=== PATIENT | female | born 1945 | race Caucasian/White ===

== ENCOUNTER → 2016-10-16 | Outpatient (CLI) | payer MEDICARE, OTHER | LOC: COL.RAD 08:15 | DX: K74.69 Other cirrhosis of liver (principal); R16.1 Splenomegaly, not elsewhere classified; K80.80 Other cholelithiasis without obstruction ==

== ENCOUNTER → 2017-06-18 | Outpatient (CLI) | payer MEDICARE, OTHER | LOC: COL.RAD 07:30 | DX: K76.89 Other specified diseases of liver (principal); K76.6 Portal hypertension; I87.8 Other specified disorders of veins; K80.20 Calculus of gallbladder without cholecystitis without obstruction; N28.89 Other specified disorders of kidney and ureter ==

== ENCOUNTER → 2017-12-03 | Outpatient (CLI) | payer MEDICARE, OTHER | LOC: COL.RAD 09:40 | DX: K74.60 Unspecified cirrhosis of liver (principal); K76.6 Portal hypertension; R16.1 Splenomegaly, not elsewhere classified; K80.20 Calculus of gallbladder without cholecystitis without obstruction ==

== ENCOUNTER → 2018-03-11 | Outpatient (CLI) | payer MEDICARE, OTHER | LOC: MC.RAD 07:40 | DX: Z12.31 Encounter for screening mammogram for malignant neoplasm of breast (principal) ==

== ENCOUNTER 2018-05-14 15:21 | Emergency (ER) | payer MEDICARE, OTHER ==
[~2018-05-14] VITALS: Ht 165.1 cm; Wt 67.3 kg
[2018-05-14 15:24] VITALS: TEMP 99
[2018-05-14 16:02] LABS: BASO % 0.3 % (0.0-2.0); EOS % 0.1 % (0-4.0); GRAN # 5.8 (1.4-6.5); GRAN % 84.8 % (42.2-75.2); LYMPH # 0.6 (1.2-3.4); LYMPH % 9.3 % (20.0-51.0); MEAN CELL VOLUME 88 fl (80.0-100.0); MEAN CORPUSCULAR HGB CONC 29 g/dl (33.0-37.0); MONO # 0.4 (0.1-0.6); MONO % 5.2 % (1.7-9.3); RED BLOOD COUNT 2.99 M/mm3 (4.10-5.30); REDCELL DISTRIBUTION WIDTH-CV 17.6 % (11.5-14.5)
[2018-05-14] MEDS ORDERED: PRINIVIL5 MG PO (16:09)
[2018-05-14] MEDS ORDERED: ACTIGALL 300MG300 MG PO (16:09)
[2018-05-14] MEDS ORDERED: NATURAL IRON65 MG (16:10)
[2018-05-14] MEDS ORDERED: VITAMIN D31000 I1 PO (16:10)
[2018-05-14] MEDS ORDERED: XANAX 0.5MG0.5 MG PO (16:12)
[2018-05-14 16:13] LABS: ALBUMIN 3.3 gm/dL (3.5-5.0); BILIRUBIN,TOTAL 0.7 mg/dL (0.0-1.0); C-REACTIVE PROTEIN 1.1 mg/dL (0.0-0.9); CALCIUM 8.7 mg/dL (8.4-10.2); CREATININE, serum 0.82 mg/dL (0.52-1.25); POTASSIUM 4.4 mmol/L (3.4-5.0); TOTAL PROTEIN 6.3 gm/dL (6.4-8.2)
[2018-05-14 16:16] LABS: HEMATOCRIT 26.3 % (37.0-47.0); HEMOGLOBIN 7.8 g/dl (12.5-16.0); MEAN CORPUSCULAR HEMOGLOBIN 26 pg (27.0-31.0)
[2018-05-14 16:17] LABS: PLATELET COUNT 48 K/mm3 (130-400)
[2018-05-14 17:37] VITALS: BP 114/56; PULSE 71
== END 2018-05-14 17:46 | disposition short-term general hospital (02) ==
LOC: COL.ER 15:21
PROVIDERS: Emergency Medicine
DX: K92.2 Gastrointestinal hemorrhage, unspecified (principal); I10 Essential (primary) hypertension; D64.9 Anemia, unspecified; D69.6 Thrombocytopenia, unspecified; Z90.710 Acquired absence of both cervix and uterus
CPT/HCPCS: C9113; J2405; J7030

== ENCOUNTER → 2018-09-09 | Outpatient (CLI) | payer MEDICARE, OTHER ==
[~2018-09-09] MED LIST: ACTIGALL 300MG300 MG PO; NATURAL IRON65 MG; PRINIVIL5 MG PO; VITAMIN D31000 I1 PO; XANAX 0.5MG0.5 MG PO
== END ==
LOC: COL.RAD 07:25
DX: K74.3 Primary biliary cirrhosis (principal); K76.6 Portal hypertension; K80.20 Calculus of gallbladder without cholecystitis without obstruction; K82.8 Other specified diseases of gallbladder

== ENCOUNTER → 2019-03-17 | Outpatient (CLI) | payer MEDICARE, OTHER | LOC: MC.RAD 09:15 | DX: Z12.31 Encounter for screening mammogram for malignant neoplasm of breast (principal) ==

== ENCOUNTER → 2019-05-12 | Outpatient (CLI) | payer MEDICARE, OTHER | LOC: COL.RAD 07:12 | DX: K74.3 Primary biliary cirrhosis (principal); K80.20 Calculus of gallbladder without cholecystitis without obstruction ==

== ENCOUNTER → 2019-11-17 | Outpatient (CLI) | payer MEDICARE, OTHER | LOC: COL.RAD 09:26 | DX: K83.1 Obstruction of bile duct (principal); K74.60 Unspecified cirrhosis of liver; D73.2 Chronic congestive splenomegaly; K74.3 Primary biliary cirrhosis ==

== ENCOUNTER → 2019-12-29 | Outpatient (CLI) | payer MEDICARE, OTHER | LOC: COL.RAD 12-27 08:00 | DX: N13.30 Unspecified hydronephrosis (principal); R91.1 Solitary pulmonary nodule ==

== ENCOUNTER → 2020-01-05 | Outpatient (CLI) | payer MEDICARE, OTHER | LOC: COL.RAD 12:57 | DX: K74.60 Unspecified cirrhosis of liver (principal); R91.1 Solitary pulmonary nodule | CPT/HCPCS: Q9967 ==

== ENCOUNTER → 2020-01-12 | Outpatient (CLI) | payer MEDICARE, OTHER ==
[~2020-01-12] VITALS: Ht 165.1 cm; Wt 64.9 kg
[2020-01-12] VITALS (13 sets, daily range): BP systolic 104–172; BP diastolic 56–88; PULSE 50–63; TEMP 98–98.4
[~2020-01-12] MED LIST changes: +CORGARD40 MG PO; +HCTZ 25MG TAB25 MG PO; +VITAMIN A10k PO
--- NOTE | 2020-01-12 10:13 | NUR ---
PT WAS TAKEN AMBULATORY TO CT. PT PLACED ON THE TABLE AND MONITORING EQUIPMENT PLACED. IMAGES TAKEN AND SENT
--- NOTE | 2020-01-12 10:26 | NUR ---
PT GIVEN VERSED 0.5 MG AND FENTANYL 25 MCG SIVP
--- NOTE | 2020-01-12 11:09 | NUR ---
Lung sounds auscultated in all lobes, dressing CDI, AAOx4, pain "tenderness" rated 3/10 "not bad at all" to right upper chest wall/puncture site.
--- NOTE | 2020-01-12 11:40 | NUR ---
Radiology called for Chest XRay
== END ==
LOC: COL.RAD 09:00
DX: R91.8 Other nonspecific abnormal finding of lung field (principal)

== ENCOUNTER 2020-01-16 18:01 | Emergency (ER) | payer MEDICARE, OTHER ==
[~2020-01-16] VITALS: Ht 165.1 cm; Wt 65.9 kg
[2020-01-16 18:24] LABS: BASO % 0.5 % (0.0-2.0); EOS % 0.7 % (0-4.0); GRAN # 3.6 (1.4-6.5); GRAN % 87.1 % (42.2-75.2); HEMATOCRIT 44.9 % (37.0-47.0); HEMOGLOBIN 14.9 g/dl (12.5-16.0); LYMPH # 0.3 (1.2-3.4); LYMPH % 6.7 % (20.0-51.0); MEAN CELL VOLUME 92 fl (80.0-100.0); MEAN CORPUSCULAR HEMOGLOBIN 31 pg (27.0-31.0); MEAN CORPUSCULAR HGB CONC 33 g/dl (33.0-37.0); MONO # 0.2 (0.1-0.6); MONO % 4.8 % (1.7-9.3); RED BLOOD COUNT 4.87 M/mm3 (4.10-5.30); REDCELL DISTRIBUTION WIDTH-CV 13.5 % (11.5-14.5)
[2020-01-16 18:27] LABS: PLATELET COUNT 34 K/mm3 (130-400)
[2020-01-16 18:28] LABS: INR 1.2 (0.8-3.0); PROTHROMBIN TIME 13.2 SECONDS (9.7-12.8)
[2020-01-16 18:31] LABS: PARTIAL THROMBOPLASTIN TIME 37.3 SECONDS (26.0-37.0)
[2020-01-16 18:34] LABS: ALBUMIN 4.4 gm/dL (3.5-5.0); BILIRUBIN,TOTAL 1.8 mg/dL (0.0-1.0); C-REACTIVE PROTEIN 1.2 mg/dL (0.0-0.9); CALCIUM 9.9 mg/dL (8.4-10.2); CREATININE, serum 0.68 (0.52-1.25); POTASSIUM 4.2 mmol/L (3.4-5.0)
[2020-01-16 19:29] VITALS: BP 176/84; PULSE 66; TEMP 98.7
[2020-01-16 19:53] VITALS: BP 150/76; PULSE 63; TEMP 98.3
[2020-01-16 20:32] VITALS: BP 149/72; PULSE 68; TEMP 98.5
[2020-01-16 20:54] VITALS: BP 149/72; PULSE 68; TEMP 98.5
== END 2020-01-16 20:59 | disposition short-term general hospital (02) ==
LOC: COL.ER 18:01
PROVIDERS: Emergency Medicine
DX: R04.2 Hemoptysis (principal); D69.6 Thrombocytopenia, unspecified; Z98.890 Other specified postprocedural states
CPT/HCPCS: J0696; J7030; P9035; Q9967

== ENCOUNTER → 2020-04-05 | Outpatient (CLI) | payer MEDICARE, OTHER | LOC: COL.CARD 03-29 11:25 | DX: D86.9 Sarcoidosis, unspecified (principal); I08.1 Rheumatic disorders of both mitral and tricuspid valves ==

== ENCOUNTER 2020-08-13 10:00 | Outpatient (RCR) | payer MEDICARE, OTHER ==
[2020-08-13] VITALS (7 sets, daily range): BP systolic 117–154; BP diastolic 59–76; PULSE 55–66; TEMP 97.7–98.5
[~2020-08-13] VITALS: Ht 165.1 cm; Wt 68.0 kg
[2020-08-13] MEDS ORDERED: CALCIUM CARBON650 M2 (10:29)
[2020-08-13] MEDS ORDERED: PREDNISONE10 MG PO (10:30)
[2020-08-13 14:14] LABS: BASO % 0.2 % (0.0-2.0); EOS % 0.3 % (0-4.0); GRAN # 5.5 (1.4-6.5); GRAN % 88.7 % (42.2-75.2); HEMATOCRIT 40.3 % (37.0-47.0); HEMOGLOBIN 13.2 g/dl (12.5-16.0); LYMPH # 0.5 (1.2-3.4); LYMPH % 8.4 % (20.0-51.0); MEAN CELL VOLUME 94 fl (80.0-100.0); MEAN CORPUSCULAR HEMOGLOBIN 31 pg (27.0-31.0); MEAN CORPUSCULAR HGB CONC 33 g/dl (33.0-37.0); MEAN PLATELET VOLUME 12.5 fl (7.4-10.4); MONO # 0.1 (0.1-0.6); MONO % 2.1 % (1.7-9.3); PLATELET COUNT 58 K/mm3 (130-400); RED BLOOD COUNT 4.27 M/mm3 (4.10-5.30)
--- NOTE | 2020-08-13 14:45 | NUR ---
1445- 1 unit platelets transfused. See transfusion record. Platelets 53 post transfusion. Results faxed to pain clinic and Dr. Duenas's office. Patient ambulatory off unit to private vehicle.
== END 2020-08-13 14:53 | disposition home or self-care (01) ==
LOC: EUO 10:00 → EDSTATUS 10:00 → EUO 14:53
PROVIDERS: Family Medicine
DX: D69.6 Thrombocytopenia, unspecified (principal)
CPT/HCPCS: J7050; P9035

== ENCOUNTER → 2020-09-11 | Outpatient (CLI) | payer MEDICARE, OTHER ==
[~2020-09-11] MED LIST changes: +CALCIUM CARBON650 M2; +PREDNISONE10 MG PO
== END ==
LOC: COL.RAD 12:26
DX: I27.21 Secondary pulmonary arterial hypertension (principal)
CPT/HCPCS: A9540; A9567

== ENCOUNTER → 2020-11-28 | Outpatient (CLI) | payer MEDICARE, OTHER ==
[~2020-11-28] MED LIST changes: +CALCIUM 600MG+D1 TAB PO; -CALCIUM CARBON650 M2; +K-DUR20 MEQ PO; +LASIX 20MG TABL20 MG PO; +NORVASC 5MG5 MG/TAB PO; +TOPROL XL 50MG50 MG PO
== END ==
LOC: COL.RAD 09:26
DX: K74.3 Primary biliary cirrhosis (principal)

== ENCOUNTER → 2021-03-05 | Outpatient (CLI) | payer MEDICARE, OTHER | LOC: COL.CAR 12:00 | DX: S32.040A Wedge compression fracture of fourth lumbar vertebra, initial encounter for closed fracture (principal); Z53.8 Procedure and treatment not carried out for other reasons ==

== ENCOUNTER 2021-03-24 10:37 | Outpatient (CLI) | payer MEDICARE, OTHER ==
[~2021-03-24] VITALS: Ht 165.2 cm; Wt 70.5 kg
[~2021-03-24 10:37] MED LIST changes: -K-DUR20 MEQ PO; -LASIX 20MG TABL20 MG PO; -NORVASC 5MG5 MG/TAB PO; -TOPROL XL 50MG50 MG PO
[2021-03-24] MEDS ORDERED: LASIX 20MG TABL20 MG PO (11:22)
[2021-03-24] MEDS ORDERED: TOPROL XL 50MG50 MG PO (11:23)
[2021-03-24] MEDS ORDERED: NORVASC 5MG5 MG/TAB PO (11:23)
[2021-03-24] MEDS ORDERED: K-DUR20 MEQ PO (11:23)
[2021-03-24 11:44] VITALS: BP 120/49; PULSE 62; TEMP 98.3
[2021-03-24 15:00] VITALS: BP 143/89; PULSE 135; TEMP 98.3
--- NOTE | 2021-03-24 15:00 | NUR ---
Report from Ashley FERRARA. Transferred from Radiology by bed. Four bandaids to back CD&I. Denies pain and needs at this time. VSS
[2021-03-24 15:16] VITALS: BP 165/85; PULSE 73; TEMP 98.3
[2021-03-24 15:31] VITALS: BP 162/94; PULSE 71; TEMP 98.3
[2021-03-24 15:46] VITALS: BP 128/73; PULSE 58; TEMP 98.3
[2021-03-24 16:12] VITALS: BP 121/72; PULSE 61; TEMP 98.3
--- NOTE | 2021-03-24 16:12 | NUR ---
Up to bathroom with steady gait. Denies pain at this time
--- NOTE | 2021-03-24 16:17 | NUR ---
INT discontinued intact. Dr. Garcia talked with pt son. Discharge instructions given.
--- NOTE | 2021-03-24 16:30 | NUR ---
Transferred to private car by rosaura
== END 2021-03-24 16:30 | disposition home or self-care (01) ==
LOC: COL.CAR 10:37
DX: M80.08XA Age-related osteoporosis with current pathological fracture, vertebra(e), initial encounter for fracture (principal); M54.5 Low back pain; Z90.710 Acquired absence of both cervix and uterus; Z20.822 Contact with and (suspected) exposure to COVID-19
CPT/HCPCS: C1713; J1200; J2250; J3010

== ENCOUNTER 2021-04-02 10:28 | Outpatient (CLI) | payer MEDICARE, OTHER ==
[~2021-04-02] VITALS: Ht 165.4 cm; Wt 70.5 kg
[~2021-04-02 10:28] MED LIST changes: +K-DUR20 MEQ PO; +LASIX 20MG TABL20 MG PO; +NORVASC 5MG5 MG/TAB PO; +TOPROL XL 50MG50 MG PO
[2021-04-02 10:57] VITALS: BP 130/59; PULSE 59; TEMP 97.7
[2021-04-02 11:11] VITALS: BP 128/68; PULSE 55
--- NOTE | 2021-04-02 11:12 | NUR ---
SEE MERGE DOCUMENTATION FOR MEDICATION ADMINISTRATION TIMES AND INTRA/POST PROCEDURE SEDATION ASSESSMENTS.
[2021-04-02 12:00] VITALS: BP 117/53; PULSE 60
--- NOTE | 2021-04-02 12:00 | NUR ---
pt back to eu 9 via bed from lab manager, has 3 bandaids to lower back, pt states is "sore" in back at this time, moves well in bed, watches tv, sips on water, reviewed post op orders with pt.
[2021-04-02 12:15] VITALS: BP 110/49; PULSE 52
[2021-04-02 12:30] VITALS: BP 113/54; PULSE 62
--- NOTE | 2021-04-02 12:45 | NUR ---
pt up to bedside to use bedside commode, voided, back to bed, moves self, no c/o increase pain.
[2021-04-02 13:00] VITALS: BP 110/60; PULSE 62
--- NOTE | 2021-04-02 13:30 | NUR ---
pt up in room, dressed, iv d'cd intact. states pain level is some better at 6 to 7, reviewed discharge inst. [facility] pt on activity, care of sites and followup after procedure with verbal understanding. pt discharged via w/c to car with
== END 2021-04-02 13:35 | disposition home or self-care (01) ==
LOC: COL.CAR 10:28
DX: M48.55XA Collapsed vertebra, not elsewhere classified, thoracolumbar region, initial encounter for fracture (principal)
CPT/HCPCS: C1713; J2250; J3010; J7120

== ENCOUNTER → 2021-04-18 | Outpatient (CLI) | payer MEDICARE, OTHER | LOC: COL.VAS 12:18 | DX: I27.21 Secondary pulmonary arterial hypertension (principal); I08.1 Rheumatic disorders of both mitral and tricuspid valves ==

== ENCOUNTER → 2021-06-19 | Outpatient (CLI) | payer MEDICARE, OTHER | LOC: MC.RAD 11:15 | DX: Z12.31 Encounter for screening mammogram for malignant neoplasm of breast (principal) ==

== ENCOUNTER → 2021-07-15 | Outpatient (CLI) | payer MEDICARE, OTHER | LOC: COL.RAD 09:39 | DX: K80.20 Calculus of gallbladder without cholecystitis without obstruction (principal); K74.3 Primary biliary cirrhosis ==

== ENCOUNTER 2021-08-30 18:19 | Emergency (ER) | payer MEDICARE, OTHER ==
[~2021-08-30] VITALS: Ht 167.6 cm; Wt 68.2 kg
[2021-08-30 18:28] VITALS: TEMP 98.1
[2021-08-30 18:50] LABS: BASO % 0.6 % (0.0-2.0); EOS % 0.6 % (0.0-4.0); GRAN # 3.8 K/mm3 (1.4-6.5); GRAN % 77.3 % (42.2-75.2); HEMATOCRIT 44.4 % (37.0-47.0); HEMOGLOBIN 14.8 g/dl (12.5-16.0); LYMPH # 0.6 K/mm3 (1.2-3.4); LYMPH % 11.3 % (20.0-51.0); MEAN CELL VOLUME 93 fl (80.0-100.0); MEAN CORPUSCULAR HEMOGLOBIN 31 pg (27-31); MEAN CORPUSCULAR HGB CONC 33 g/dl (33.0-37.0); MEAN PLATELET VOLUME 11.8 fl (7.4-10.4); MONO # 0.5 K/mm3 (0.1-0.6); PLATELET COUNT 52 K/mm3 (130-400); RED BLOOD COUNT 4.76 M/mm3 (4.10-5.30); REDCELL DISTRIBUTION WIDTH-CV 13.3 % (11.5-14.5)
[2021-08-30 19:05] LABS: ALBUMIN 4.2 gm/dL (3.4-4.8); BILIRUBIN,TOTAL 1.9 mg/dL (0.2-1.2); C-REACTIVE PROTEIN 0.84 mg/dL (0.00-0.50); CALCIUM 9.8 mg/dL (8.4-10.2); CREATININE, serum 0.73 mg/dL (0.57-1.11); TOTAL PROTEIN 7.6 gm/dL (6.2-8.1)
[2021-08-30 20:14] LABS: PH 7 (5-8); SQUAMOUS EPITHELIAL 0-2 /hpf (0-10); URINE APPEARANCE Clear (CLEAR/HAZY); URINE BACTERIA None Seen /hpf (NONE SEEN); URINE BILIRUBIN Negative (NEGATIVE); URINE BLOOD 2+ (NEGATIVE); URINE COLOR Yellow (YELLOW); URINE GLUCOSE Negative (NEGATIVE); URINE KETONE Negative (NEGATIVE); URINE LEUKOCYTE ESTERASE 1+ (NEGATIVE); URINE NITRATE Negative (NEGATIVE); URINE PROTEIN(semi-quant) Negative (NEGATIVE); URINE UROBILINOGEN Negative (NEGATIVE)
[2021-08-30 20:17] LABS: COLLECTION METHOD CATHETER
[2021-08-30 22:00] VITALS: BP 166/97; PULSE 95
[2021-08-30] MEDS ORDERED: ROXICODONE 55 MG/TAB PO (22:13)
== END 2021-08-30 22:00 | disposition home or self-care (01) ==
LOC: COL.ER 18:19
PROVIDERS: Nurse Practitioner Primary Care
DX: K74.5 Biliary cirrhosis, unspecified (principal); D73.2 Chronic congestive splenomegaly; K76.6 Portal hypertension; F41.9 Anxiety disorder, unspecified; Z79.899 Other long term (current) drug therapy
CPT/HCPCS: J1170; J1885; J2270; J2405; J7030; Q9967

== ENCOUNTER 2021-10-14 08:30 | Emergency (ER) | payer MEDICARE, OTHER ==
[~2021-10-14 08:30] MED LIST changes: +ROXICODONE 55 MG/TAB PO
[2021-10-14 09:33] LABS: BASO # 0.1 K/mm3 (0.0-0.2); EOS % 0.8 % (0.0-4.0); GRAN # 3.3 K/mm3 (1.4-6.5); GRAN % 66.2 % (42.2-75.2); HEMATOCRIT 41.3 % (37.0-47.0); HEMOGLOBIN 13.9 g/dl (12.5-16.0); LYMPH # 0.8 K/mm3 (1.2-3.4); LYMPH % 15.6 % (20.0-51.0); MEAN CELL VOLUME 93 fl (80.0-100.0); MEAN CORPUSCULAR HEMOGLOBIN 31 pg (27-31); MEAN CORPUSCULAR HGB CONC 34 g/dl (33.0-37.0); MEAN PLATELET VOLUME 12.2 fl (7.4-10.4); MONO # 0.8 K/mm3 (0.1-0.6); PLATELET COUNT 65 K/mm3 (130-400); RED BLOOD COUNT 4.46 M/mm3 (4.10-5.30); REDCELL DISTRIBUTION WIDTH-CV 14.2 % (11.5-14.5)
[2021-10-14 09:47] LABS: ALBUMIN 3.7 gm/dL (3.4-4.8); BILIRUBIN,TOTAL 2.5 mg/dL (0.2-1.2); CALCIUM 9.4 mg/dL (8.4-10.2); CREATININE, serum 0.76 mg/dL (0.57-1.11); POTASSIUM 3.5 mmol/L (3.5-4.5); TOTAL PROTEIN 6.4 gm/dL (6.2-8.1)
[2021-10-14 11:33] VITALS: BP 138/82; PULSE 104
== END 2021-10-14 11:40 | disposition home or self-care (01) ==
LOC: COL.ER 08:30
PROVIDERS: Emergency Medicine
DX: R10.12 Left upper quadrant pain (principal); R07.89 Other chest pain; E80.7 Disorder of bilirubin metabolism, unspecified; W01.0XXA Fall on same level from slipping, tripping and stumbling without subsequent striking against object, initial encounter
CPT/HCPCS: J2270; J2405; J3010; Q9967

== ENCOUNTER → 2022-12-11 | Outpatient (CLI) | payer MEDICARE, OTHER | LOC: COL.RAD 09:38 | DX: K74.3 Primary biliary cirrhosis (principal) ==